=== PATIENT | male | born 1980 | race Caucasian/White ===

== ENCOUNTER → 2019-08-26 07:28 | Outpatient (CLI) | payer OTHER ==
[~2019-08-26 07:28] MED LIST: MEDROL DOSE PACK4 MG PO; TYLENOL W/CODEI1 TAB PO; VIBRAMYCIN 100100 MG PO; VOLTAREN75 MG PO
== END | disposition home or self-care (01) ==
LOC: D.US 07:28
PROVIDERS: ATTEND Nurse Practitioner
DX: B18.2 Chronic viral hepatitis C (principal)

== ENCOUNTER 2019-10-07 19:07 | Emergency (ER) | payer MEDICAID ==
[~2019-10-07] VITALS: Ht 170.2 cm; Wt 72.7 kg
[2019-10-07 19:16] VITALS: Ht 170.2 cm; Wt 72.7 kg
[2019-10-07 19:56] LABS: APPEARANCE CLEAR (CLEAR); BILIRUBIN NEGATIVE (NEGATIVE); COLOR YELLOW (YELLOW); GLUCOSE NEGATIVE (NEGATIVE); KETONE NEGATIVE (NEGATIVE); NITRITE NEGATIVE (NEGATIVE); PROTEIN NEGATIVE (NEGATIVE); SPECIFIC GRAVITY 1.015 (1.005-1.020); UROBILINOGEN NORMAL (NORMAL)
[2019-10-07] MEDS ORDERED: MEDROL DOSE PACK4 MG PO (20:54)
[2019-10-07] MEDS ORDERED: TYLENOL W/CODEI1 TAB PO (20:54)
[2019-10-07 21:48] VITALS: BP 126/80
== END 2019-10-07 21:50 | disposition home or self-care (01) ==
LOC: D.ER 19:07
PROVIDERS: Emergency Medicine
DX: S30.862A Insect bite (nonvenomous) of penis, initial encounter (principal); R60.9 Edema, unspecified; B19.20 Unspecified viral hepatitis C without hepatic coma; W57.XXXA Bitten or stung by nonvenomous insect and other nonvenomous arthropods, initial encounter

== ENCOUNTER 2019-10-09 19:55 | Emergency (ER) | payer MEDICAID ==
[~2019-10-09] VITALS: Ht 170.2 cm; Wt 72.7 kg
[~2019-10-09 19:55] MED LIST changes: -VIBRAMYCIN 100100 MG PO; -VOLTAREN75 MG PO
[2019-10-09 20:07] VITALS: Ht 170.2 cm; Wt 72.7 kg
[2019-10-09 21:46] LABS: BASOPHILS 0.2 % (0-2); EOSINOPHILS 6.2 % (0-7); HEMATOCRIT 41.1 % (42.0-54.0); IMMATURE GRANULOCYTES 0.3 % (0-5); LYMPHOCYTES 45.8 % (15-50); MCH 31.3 pg (26.0-34.0); MCHC 34.1 g/dL (31.0-37.0); MCV 91.9 fL (80.0-100.0); MEAN PLATELET VOLUME 9.7 fL (7.4-10.4); MONOCYTES 7.6 % (2-11); NEUTROPHILS 39.9 % (40-80); PLATELET COUNT 225 10x3/uL (130-400); RBC 4.47 10x6/uL (4.20-6.10); RDW 12.4 % (11.5-14.5); WBC 9.9 10x3/uL (4.8-10.8)
[2019-10-09 21:56] LABS: CALC OSMOLALITY 294 mosm/kg (275-300); CALCIUM 8.6 mg/dL (8.5-10.1); CARBON DIOXIDE 31.2 mmol/L (21.0-32.0); CHLORIDE - SERUM 107 mmol/L (98-107); CREATININE - SERUM 1.3 mg/dL (0.6-1.3); GLUCOSE 135 mg/dL (74-106); POTASSIUM - SERUM 3.5 mmol/L (3.5-5.1); SODIUM 145 mmol/L (136-145); UREA NITROGEN 24 mg/dL (7-18); eGFR NON AFRICAN AMERICAN 65 mL/min (90-120)
[2019-10-09] MEDS ORDERED: VIBRAMYCIN 100100 MG PO (22:02)
[2019-10-09] MEDS ORDERED: VOLTAREN75 MG PO (22:02)
[2019-10-09 22:09] LABS: ALBUMIN 3.6 g/dL (3.4-5.0); ALKALINE PHOSPHATASE 98 U/L (46-116); ALT (SGPT) 102 U/L (10-68); AMYLASE - SERUM 62 U/L (25-115); BILIRUBIN - TOTAL 0.29 mg/dL (0.2-1.3); LIPASE 516 U/L (73-393); PROTEIN - SERUM 6.9 g/dL (6.4-8.2); TROPONIN-I < 0.017 ng/mL (0.000-0.060)
[2019-10-09 22:18] LABS: APPEARANCE CLEAR (CLEAR); BILIRUBIN NEGATIVE (NEGATIVE); COLOR YELLOW (YELLOW); GLUCOSE NEGATIVE (NEGATIVE); KETONE NEGATIVE (NEGATIVE); NITRITE NEGATIVE (NEGATIVE); PROTEIN NEGATIVE (NEGATIVE); SPECIFIC GRAVITY 1.025 (1.005-1.020); UROBILINOGEN NORMAL (NORMAL)
[2019-10-09 22:40] VITALS: BP 136/87
== END 2019-10-09 22:30 | disposition home or self-care (01) ==
LOC: D.ER 19:55
PROVIDERS: Family Medicine
DX: N49.8 Inflammatory disorders of other specified male genital organs (principal); R60.9 Edema, unspecified

== ENCOUNTER 2020-09-05 19:09 | Emergency (ER) | payer OTHER ==
[~2020-09-05] VITALS: Ht 170.2 cm; Wt 72.7 kg
[~2020-09-05 19:09] MED LIST changes: +VIBRAMYCIN 100100 MG PO; +VOLTAREN75 MG PO
[2020-09-05 19:23] VITALS: Ht 170.2 cm; Wt 72.7 kg
[2020-09-05] MEDS ORDERED: CARAFATE1 G PO (19:26)
[2020-09-05 21:46] LABS: HEMATOCRIT 42.6 % (42.0-54.0); HEMOGLOBIN 14.7 g/dL (13.5-17.5); LYMPHOCYTES 28.9 % (15-50); MCH 30.2 pg (26.0-34.0); MCHC 34.5 g/dL (31.0-37.0); MCV 87.5 fL (80.0-100.0); MEAN PLATELET VOLUME 9.5 fL (7.4-10.4); NEUTROPHILS 63.2 % (40-80); PLATELET COUNT 227 10x3/uL (130-400); RBC 4.87 10x6/uL (4.20-6.10); RDW 12.6 % (11.5-14.5); WBC 11.2 10x3/uL (4.8-10.8)
[2020-09-05 21:47] LABS: BILIRUBIN NEGATIVE (NEGATIVE); KETONE NEGATIVE (NEGATIVE); NITRITE NEGATIVE (NEGATIVE); UROBILINOGEN NORMAL mg/dL (< 2)
[2020-09-05 21:51] LABS: BACTERIA FEW HPF (NONE SEEN); EPITHELIAL CELLS NSEEN /hpf (0-5); WHITE CELLS - URINE 0-5 HPF (0-1)
[2020-09-05 21:54] LABS: CALC OSMOLALITY 278 mosm/kg (275-300); CARBON DIOXIDE 27.9 mmol/L (21.0-32.0); CHLORIDE - SERUM 105 mmol/L (98-107); CREATININE - SERUM 1.1 mg/dL (0.6-1.3); GLUCOSE 122 mg/dL (74-106); POTASSIUM - SERUM 3.4 mmol/L (3.5-5.1); SODIUM 139 mmol/L (136-145); UREA NITROGEN 12 mg/dL (7-18); eGFR NON AFRICAN AMERICAN 79 mL/min (90-120)
[2020-09-05 22:00] LABS: ALKALINE PHOSPHATASE 111 U/L (30-120); ALT (SGPT) 110 U/L (10-68); BILIRUBIN - TOTAL 0.66 mg/dL (0.2-1.3); PROTEIN - SERUM 7.6 g/dL (6.4-8.2)
[2020-09-05] MEDS ORDERED: NORCO 7.5-3251 EACH PO (23:03)
[2020-09-05 23:30] VITALS: BP 148/90
== END 2020-09-05 23:41 | disposition home or self-care (01) ==
LOC: D.ER 19:09
PROVIDERS: Family Medicine
DX: T14.8XXA Other injury of unspecified body region, initial encounter (principal); Y04.8XXA Assault by other bodily force, initial encounter; Y93.9 Activity, unspecified; Y92.9 Unspecified place or not applicable; R51.9 Headache, unspecified; M25.551 Pain in right hip; M54.2 Cervicalgia